=== PATIENT | female | born 1960 | race Caucasian/White ===

== ENCOUNTER → 2016-10-13 | Outpatient (CLI) | payer OTHER ==
--- NOTE | 2016-10-13 13:44 | RAD ---
Ultrasound of the right breast 10/13/2016 Clinical history: The patient is status post right breast lumpectomy in July and August 2015 with interval development of a hematoma within the lumpectomy site. Technique: A real-time ultrasound examination of the right breast at the 8:00 position was performed. Multiple images were obtained. Findings: Comparison study is dated 06/18/2016. A complex oval-shaped structure is seen within the right breast at the 8:00 position. This measures 2.6 x 2.6 x 0.81 cm in size. It has decreased in size since the previous examination where it measured 3.1 x 2.9 x 1.9 cm in size.. This is consistent with a resolving hematoma. No solid mass is seen. Impression: Interval decrease in size of the hematoma within the right breast as outlined above.
== END | disposition home or self-care (01) ==
LOC: US 08:41
PROVIDERS: ATTEND Internal Medicine Hematology & Oncology
DX: D05.11 Intraductal carcinoma in situ of right breast (principal); N64.89 Other specified disorders of breast
CPT/HCPCS: 76641

== ENCOUNTER → 2017-01-07 | Outpatient (CLI) | payer OTHER ==
--- NOTE | 2017-01-07 14:02 | RAD ---
DATE: 01/07/2017 EXAM: MAMMO HOLLIE DIAG BILAT HISTORY: History of right breast cancer status post lumpectomy and radiation treatment. On tamoxifen. COMPARISON: Prior mammogram from 10/13/2016, 06/18/2016, 03/12/2016, and 06/13/2015 This study was interpreted with the benefit of Computerized Aided Detection (CAD). The breast parenchyma is heterogeneously dense, which could reduce sensitivity of mammography. Breast parenchyma level C. FINDINGS: Bilateral CC and MLO views were performed. Bilateral tomosynthesis in CC and MLO views were performed. Right breast: Right breast lumpectomy changes are present. No suspicious microcalcifications, masses or new areas of architectural distortion. Left breast: No suspicious microcalcifications, masses or areas of architectural distortion. Findings are stable from the prior mammogram. IMPRESSION: 1. Right breast: Benign findings. 2. Left breast: Negative left mammogram. BI-RADS CATEGORY: 2 BENIGN FINDING(S) RECOMMENDED FOLLOW-UP: 12M 12 MONTH FOLLOW-UP PQRS compliance statement: Patient information was entered into a reminder system with a target due date 01/07/2018 for the next mammogram. Mammography is a sensitive method for finding small breast cancers, but it does not detect them all and is not a substitute for careful clinical examination. A negative mammogram does not negate a clinically suspicious finding and should not result in delay in biopsying a clinically suspicious abnormality. "Our facility is accredited by the [employer] Mammography [employer]."
== END | disposition home or self-care (01) ==
LOC: MAMMO 12:51
PROVIDERS: ATTEND Family Medicine
DX: R92.8 Other abnormal and inconclusive findings on diagnostic imaging of breast (principal); Z85.3 Personal history of malignant neoplasm of breast; Z98.890 Other specified postprocedural states; Z92.3 Personal history of irradiation
CPT/HCPCS: G0204; G0279; 77062; 77066

== ENCOUNTER → 2018-01-13 | Outpatient (CLI) | payer OTHER ==
--- NOTE | 2018-01-13 13:40 | RAD ---
DATE: 01/13/2018 EXAM: MAMMO HOLLIE DIAG BILAT HISTORY: Previous right breast cancer COMPARISON: 01/07/2017 This study was interpreted with the benefit of Computerized Aided Detection (CAD). Breast Density: HETERO The breast parenchyma is heterogenously dense, which could reduce sensitivity of mammography. Breast parenchyma level C. FINDINGS: 2-D and 3-D tomosynthesis imaging was performed in CC and MLO projections. Post therapeutic changes are again noted laterally in the right breast. No new or enlarging breast densities are seen. Minimal benign type calcification is present in the left. No suspicious microcalcifications have developed. IMPRESSION: Stable mammograms without evidence of malignancy. BI-RADS CATEGORY: 2 BENIGN FINDING(S) RECOMMENDED FOLLOW-UP: 12M 12 MONTH FOLLOW-UP PQRS compliance statement: Patient information was entered into a reminder system with a target due date for the next mammogram. Mammography is a sensitive method for finding small breast cancers, but it does not detect them all and is not a substitute for careful clinical examination. A negative mammogram does not negate a clinically suspicious finding and should not result in delay in biopsying a clinically suspicious abnormality. "Our facility is accredited by the [employer] Mammography [employer]."
== END | disposition home or self-care (01) ==
LOC: MAMMO 12:55
PROVIDERS: ATTEND Family Medicine
DX: R92.8 Other abnormal and inconclusive findings on diagnostic imaging of breast (principal); Z85.3 Personal history of malignant neoplasm of breast; Z92.3 Personal history of irradiation
CPT/HCPCS: 77066; G0279; 77062

== ENCOUNTER → 2019-01-26 | Outpatient (CLI) | payer OTHER ==
--- NOTE | 2019-01-26 17:09 | RAD ---
DATE: 01/26/2019 EXAM: MAMMO HOLLIE SCREENING BILATERAL HISTORY: Routine screening COMPARISON: 07/16/2016, 01/07/2017, and 01/13/2018 mammographic exams This study was interpreted with the benefit of Computerized Aided Detection (CAD). Breast Density: HETERO The breast parenchyma is heterogenously dense, which could reduce sensitivity of mammography. Breast parenchyma level C. FINDINGS: No suspicious calcification, mass, or distortion. IMPRESSION: Stable BI-RADS CATEGORY: 1 NEGATIVE RECOMMENDED FOLLOW-UP: 12M 12 MONTH FOLLOW-UP PQRS compliance statement: Patient information was entered into a reminder system with a target due date in one year for the next mammogram. Mammography is a sensitive method for finding small breast cancers, but it does not detect them all and is not a substitute for careful clinical examination. A negative mammogram does not negate a clinically suspicious finding and should not result in delay in biopsying a clinically suspicious abnormality. "Our facility is accredited by the [employer] Mammography [employer]."
== END | disposition home or self-care (01) ==
LOC: MAMMO 09:44
PROVIDERS: ATTEND Family Medicine
DX: Z12.31 Encounter for screening mammogram for malignant neoplasm of breast (principal)
CPT/HCPCS: 77063; 77067

== ENCOUNTER → 2020-01-28 | Outpatient (CLI) | payer OTHER ==
--- NOTE | 2020-01-29 08:36 | RAD ---
EXAMINATION: MAMMO HOLLIE DIAG BILAT History: HX OF RT BREAST CANCER 2016 / Comparison: None. Technique: Bilateral digital diagnostic mammogram views were obtained. CAD was utilized. 3-D tomosynthesis images were acquired. Findings: Breast Tissue Density B : There are scattered areas of fibroglandular density. There are no dominant masses, suspicious microcalcifications, or new architectural distortion. Right upper outer breast distortion is stable. IMPRESSION: No mammographic evidence of malignancy. Recommend routine screening. BI-RADS category 1: Negative. The images were reviewed with computer aided detection. Patient information is entered into the reminder system with a target due date for the next screening mammogram. Mammography is the most sensitive method for finding small breast cancers, but it does not detect them all and is not a substitute for careful clinical examination. A negative mammogram does not negate a clinically suspicious finding and should not result in delay in biopsying a clinically suspicious abnormality. "Our facility is accredited by the [employer] Mammography [employer]." Electronically signed by: Kristopher Childers MD (01/29/2020 8:33 AM) [facility]
== END | disposition home or self-care (01) ==
LOC: MAMMO 12:49
PROVIDERS: ATTEND Internal Medicine Hematology & Oncology
DX: R92.2 Inconclusive mammogram (principal); Z85.3 Personal history of malignant neoplasm of breast
CPT/HCPCS: 77066; G0279; 77062

== ENCOUNTER → 2021-01-30 | Outpatient (CLI) | payer BC, OTHER ==
--- NOTE | 2021-01-30 16:09 | RAD ---
DATE: 01/30/2021 EXAM: MG DIGITAL BILAT DIAGNOSTIC MAMMO WITH HOLLIE HISTORY: Annual mammogram, 5 year follow-up of right breast cancer post lumpectomy, radiation, and ta moxifen. Benign left breast biopsy July 2020 at outside hospital. COMPARISON: 01/28/2020, 01/26/2019, and 01/13/2018, 01/07/2017 This study was interpreted with the benefit of Computerized Aided Detection (CAD). FINDINGS: The breast parenchyma shows scattered fibroglandular densities. Posttreatment changes in the upper ou ter right breast are stable. There is a new circumscribed at 1 cm mass at 9:00 in the left breast, 6 cm from the nipple containing a postbiopsy clip. Per outside records, the patient had a benign left b reast biopsy in July 2020. There are no suspicious masses, suspicious microcalcifications or evidenc e of architectural distortion. IMPRESSION: 1. Stable posttreatment changes in the right breast. 2. New 1 cm left breast mass containing a biopsy clip. Per the patient's records, she had a benign le ft breast biopsy in July 2020. BI-RADS CATEGORY: 2 BENIGN FINDING RECOMMENDED FOLLOW-UP: Annual mammogram in 12 months. PQRS compliance statement: Patient information was entered into a reminder system with a target due d ate for the next mammogram. Mammography is a sensitive method for finding small breast cancers, but it does not detect them all a nd is not a substitute for careful clinical examination. A negative mammogram does not negate a clin ically suspicious finding and should not result in delay in biopsying a clinically suspicious abnorma lity. "Our facility is accredited by the [employer] Mammography [employer]." Electronically signed by: Nancy Mcneil MD (01/30/2021 4:06 PM) [email or web address]
== END ==
LOC: MAMMO 12:51
PROVIDERS: ATTEND Internal Medicine Gastroenterology
DX: Z15.01 Genetic susceptibility to malignant neoplasm of breast (principal); Z15.02 Genetic susceptibility to malignant neoplasm of ovary; R92.8 Other abnormal and inconclusive findings on diagnostic imaging of breast; Z15.09 Genetic susceptibility to other malignant neoplasm; Z80.3 Family history of malignant neoplasm of breast; D05.11 Intraductal carcinoma in situ of right breast; N63.20 Unspecified lump in the left breast, unspecified quadrant
CPT/HCPCS: 77066; G0279; 77062